=== PATIENT | female | born 1965 | race Caucasian/White ===

== ENCOUNTER 2024-02-05 13:56 | Emergency (ER) | payer SELFPAY ==
[~2024-02-05] VITALS: Ht 149.9 cm; Wt 47.0 kg
[2024-02-05] MEDS ORDERED: KETOROLAC TROMETHAMINE 30 MG/ML SDV IM ONE (15:25)
[2024-02-05] MEDS ORDERED: traMADol HCL 50 MG/TAB PO ONE (15:25)
[2024-02-05 15:26] VITALS: BP 116/74
[2024-02-05 15:30] VITALS: BP 129/78
[2024-02-05] MEDS ORDERED: LORTAB 1010 MG PO (15:42)
[2024-02-05 15:45] VITALS: BP 113/77
[2024-02-05 16:00] VITALS: BP 123/77
[2024-02-05 16:07] VITALS: BP 123/77
== END 2024-02-05 16:10 | disposition home or self-care (01) | DRG 563 ==
LOC: ED 13:56
DX: S82.034A Nondisplaced transverse fracture of right patella, initial encounter for closed fracture (principal); W01.0XXA Fall on same level from slipping, tripping and stumbling without subsequent striking against object, initial encounter; Y92.009 Unspecified place in unspecified non-institutional (private) residence as the place of occurrence of the external cause